=== PATIENT | female | born 1935 | race Caucasian/White ===

== ENCOUNTER 2017-03-14 08:24 | Day surgery (SDC) | payer OTHER ==
[2017-03-14] MEDS ORDERED: fentaNYL CITRATE 100 MCG/2 ML VL IV ONE (09:00)
[2017-03-14] MEDS ORDERED: MIDAZOLAM HCL 1MG/1ML-2 ML VIAL IV ONE (09:00)
[2017-03-14] MEDS ORDERED: fentaNYL CITRATE 100 MCG/2 ML VL ONE (09:00)
[2017-03-14] MEDS ORDERED: LIDOCAINE VISCOUS 2% 15ML UD PO ONE (09:00)
[2017-03-14] MEDS ORDERED: MIDAZOLAM HCL 1MG/1ML-2 ML VIAL ONE (09:00)
[2017-03-14] MEDS ORDERED: diphenhdrAMINE HCL 50 MG/1 ML VL ONE (09:01)
[2017-03-14] MEDS ORDERED: FLUMAZENIL 0.1 MG/ML INJ 10ML MDV IV ONE (09:01)
[2017-03-14] MEDS ORDERED: LIDOCAINE VISCOUS 2% 15ML UD ONE (09:01)
[2017-03-14] MEDS ORDERED: NALOXONE HCL 0.4 MG/ML VIAL ONE (09:01)
== END 2017-03-14 11:55 | disposition home or self-care (01) ==
LOC: CATH 08:24
PROVIDERS: ATTEND Internal Medicine
DX: I48.91 Unspecified atrial fibrillation (principal); I50.9 Heart failure, unspecified; I10 Essential (primary) hypertension; Z90.710 Acquired absence of both cervix and uterus; Z90.49 Acquired absence of other specified parts of digestive tract
CPT/HCPCS: 92960; 93312; J1200; J2250; J3010; 99152; 99153